=== PATIENT | female | born 1990 | race Caucasian/White ===

== ENCOUNTER 2018-08-29 12:31 | Day surgery (SDC) | payer BC ==
[~2018-08-29] VITALS: Ht 157.5 cm; Wt 77.6 kg
[~2018-08-29 12:31] MED LIST: NS 1,000 ML IV ONE; TOPA50TA8 PO
[2018-08-29] MEDS ORDERED: LIDOCAINE 2% INJ 100 MG/5 ML SDV (FOR ANES.) As Ordered ONE (12:56)
[2018-08-29] MEDS ORDERED: PROPOFOL 200 MG/20 ML VIAL As Ordered ONE (12:56)
--- NOTE | 2018-08-29 13:42 | ROOR ---
Patient Name: Manny Carrera Procedure Date: 08/29/2018 1:08 PM Date of : 1990 Age: 27 Room: [facility] Gender: Female Note Status: Finalized Procedure: Upper GI endoscopy Indications: Dyspepsia, Suspected gastro-esophageal reflux disease Providers: Julian Rachel MD Referring MD: RUBA Longoria Requesting Provider: Medicines: Monitored Anesthesia Care Complications: No immediate complications. Procedure: Pre-Anesthesia Assessment: - Prior to the procedure, a History and Physical was performed, and patient medications and allergies were reviewed. The patient is competent. The risks and benefits of the procedure and the sedation options and risks were discussed with the patient. All questions were answered and informed consent was obtained. Patient identification and proposed procedure were verified by the physician, the nurse and the anesthesiologist in the procedure room. Mental Status Examination: alert and oriented. Airway Examination: normal oropharyngeal airway and neck mobility. Respiratory Examination: clear to auscultation. CV Examination: normal. Prophylactic Antibiotics: The patient does not require prophylactic antibiotics. Prior Anticoagulants: The patient has taken no previous anticoagulant or antiplatelet agents. ASA Grade Assessment: II - A patient with mild systemic disease. After reviewing the risks and benefits, the patient was deemed in satisfactory condition to undergo the procedure. The anesthesia plan was to use monitored anesthesia care (MAC). Immediately prior to administration of medications, the patient was re-assessed for adequacy to receive sedatives. The heart rate, respiratory rate, oxygen saturations, blood pressure, adequacy of pulmonary ventilation, and response to care were monitored throughout the procedure. The physical status of the patient was re-assessed after the procedure. The Endoscope was introduced through the mouth, and advanced to the second part of duodenum. The upper GI endoscopy was accomplished without difficulty. The patient tolerated the procedure well. Findings: The Z-line was irregular and was found 36 cm from the incisors. LA Grade A (one or more mucosal breaks less than 5 mm, not extending between tops of 2 mucosal folds) esophagitis with no bleeding was found in the distal esophagus. Biopsies were taken with a cold forceps for histology. Verification of patient identification for the specimen was done by the physician and nurse using the patient's name, date and medical record number. Estimated blood loss was minimal. Scattered moderate inflammation characterized by erosions, erythema, friability and granularity was found in the gastric antrum. Biopsies were taken with a cold forceps for Helicobacter pylori testing. The duodenal bulb and second portion of the duodenum were normal. Biopsies for histology were taken with a cold forceps for evaluation of celiac disease. Impression: - Z-line irregular, 36 cm from the incisors. - LA Grade A reflux esophagitis. Biopsied. - Gastritis. Biopsied. - Normal duodenal bulb and second portion of the duodenum. Biopsied. Recommendation: - Patient has a contact number available for emergencies. The signs and symptoms of potential delayed complications were discussed with the patient. Return to normal activities tomorrow. Written discharge instructions were provided to the patient. - Resume regular diet. - Follow an antireflux regimen. - Await pathology results. - Telephone GI clinic for pathology results in 2 weeks. - Return to primary care physician. Julian Rachel MD Julian Rachel MD 08/29/2018 1:42:29 PM Electronically signed by Julian Rachel MD Number of Addenda: 0 Note Initiated On: 08/29/2018 1:08 PM Estimated Blood Loss: Estimated blood loss was minimal.
--- NOTE | 2018-08-29 13:48 | ROOR ---
Patient Name: Manny Carrera Procedure Date: 08/29/2018 1:09 PM Date of : 1990 Age: 27 Room: [facility] Gender: Female Note Status: Finalized Procedure: Colonoscopy Indications: Chronic diarrhea, Gastrointestinal occult blood loss Providers: Julian Rachel MD Referring MD: RUBA Longoria Requesting Provider: Medicines: Monitored Anesthesia Care Complications: No immediate complications. Procedure: Pre-Anesthesia Assessment: - Prior to the procedure, a History and Physical was performed, and patient medications and allergies were reviewed. The patient is competent. The risks and benefits of the procedure and the sedation options and risks were discussed with the patient. All questions were answered and informed consent was obtained. Patient identification and proposed procedure were verified by the physician, the nurse and the anesthesiologist in the procedure room. Mental Status Examination: alert and oriented. Airway Examination: normal oropharyngeal airway and neck mobility. Respiratory Examination: clear to auscultation. CV Examination: normal. Prophylactic Antibiotics: The patient does not require prophylactic antibiotics. Prior Anticoagulants: The patient has taken no previous anticoagulant or antiplatelet agents. ASA Grade Assessment: II - A patient with mild systemic disease. After reviewing the risks and benefits, the patient was deemed in satisfactory condition to undergo the procedure. The anesthesia plan was to use monitored anesthesia care (MAC). Immediately prior to administration of medications, the patient was re-assessed for adequacy to receive sedatives. The heart rate, respiratory rate, oxygen saturations, blood pressure, adequacy of pulmonary ventilation, and response to care were monitored throughout the procedure. The physical status of the patient was re-assessed after the procedure. The Colonoscope was introduced through the anus and advanced to the terminal ileum, with identification of the appendiceal orifice and IC valve. The colonoscopy was performed without difficulty. The patient tolerated the procedure well. The quality of the bowel preparation was good. The terminal ileum, ileocecal valve, appendiceal orifice, and rectum were photographed. Scope insertion time was 3 minutes. Scope withdrawal time was 6 minutes. The total duration of the procedure was 9 minutes. Findings: The perianal and digital rectal examinations were normal. The terminal ileum appeared normal. Normal mucosa was found in the entire colon. Biopsies for histology were taken with a cold forceps from the right colon, left colon and rectosigmoid colon for evaluation of microscopic colitis. Verification of patient identification for the specimen was done by the physician and nurse using the patient's name, date and medical record number. Estimated blood loss was minimal. Non-bleeding external and internal hemorrhoids were found during retroflexion. The hemorrhoids were medium-sized. Impression: - The examined portion of the ileum was normal. - Normal mucosa in the entire examined colon. Biopsied. - Non-bleeding external and internal hemorrhoids. Recommendation: - Patient has a contact number available for emergencies. The signs and symptoms of potential delayed complications were discussed with the patient. Return to normal activities tomorrow. Written discharge instructions were provided to the patient. - High fiber diet. - Continue present medications. - Await pathology results. - Repeat colonoscopy at age 52 for screening purposes. - Telephone GI clinic for pathology results @ [phone] after 1 week on Tuesday afternoon between 1:00 to 3:00 PM. - Return to primary care physician. Julian Rachel MD Julian Rachel MD 08/29/2018 1:48:09 PM Electronically signed by Julian Rachel MD Number of Addenda: 0 Note Initiated On: 08/29/2018 1:09 PM Estimated Blood Loss: Estimated blood loss was minimal.
[2018-08-29 14:00] VITALS: BP 142/97
== END 2018-08-29 14:12 | disposition home or self-care (01) ==
LOC: M OPP 12:31
PROVIDERS: ATTEND Internal Medicine Gastroenterology
DX: K64.8 Other hemorrhoids (principal); K52.9 Noninfective gastroenteritis and colitis, unspecified; R19.5 Other fecal abnormalities; R10.13 Epigastric pain; K22.8 Other specified diseases of esophagus; K21.0 Gastro-esophageal reflux disease with esophagitis; K29.70 Gastritis, unspecified, without bleeding; Z79.899 Other long term (current) drug therapy; Z88.8 Allergy status to other drugs, medicaments and biological substances

== ENCOUNTER → 2020-01-31 | Outpatient (CLI) | payer BC ==
[~2020-01-31] MED LIST changes: +ADV100INH INH; +DROS3TAB PO; +MONT4GRA4 PO; -NS 1,000 ML IV ONE; +OMEP40CA97 PO; +VENTAER INH
== END ==
LOC: M LABSMTC 12:07
PROVIDERS: ATTEND Anesthesiology
DX: Z01.812 Encounter for preprocedural laboratory examination (principal); Z20.828 Contact with and (suspected) exposure to other viral communicable diseases

== ENCOUNTER 2020-02-05 08:16 | Day surgery (SDC) | payer BC ==
[~2020-02-05] VITALS: Ht 154.9 cm; Wt 82.7 kg
[~2020-02-05 08:16] MED LIST changes: +LIDOCAINE 2% 100MG/5ML SDV (FOR ANES.) As Ordered ONE; +NS 1,000 ML IV ONE; +propofoL 200 MG/20 ML VIAL As Ordered ONE
--- NOTE | 2020-02-05 09:29 | ROOR ---
Patient Name: Manny Carrera Procedure Date: 02/05/2020 8:56 AM Date of : 1990 Age: 29 Room: [facility] Gender: Female Note Status: Finalized Procedure: Upper GI endoscopy Indications: Heartburn, Follow-up of Spivey's esophagus Providers: Julian Rachel MD Referring MD: Johanna Colunga NP Requesting Provider: Medicines: Monitored Anesthesia Care Complications: No immediate complications. Procedure: Pre-Anesthesia Assessment: - Prior to the procedure, a History and Physical was performed, and patient medications and allergies were reviewed. The patient is competent. The risks and benefits of the procedure and the sedation options and risks were discussed with the patient. All questions were answered and informed consent was obtained. Patient identification and proposed procedure were verified by the physician, the nurse and the anesthesiologist in the procedure room. Mental Status Examination: alert and oriented. Airway Examination: normal oropharyngeal airway and neck mobility. Respiratory Examination: clear to auscultation. CV Examination: normal. Prophylactic Antibiotics: The patient does not require prophylactic antibiotics. Prior Anticoagulants: The patient has taken no previous anticoagulant or antiplatelet agents. ASA Grade Assessment: II - A patient with mild systemic disease. After reviewing the risks and benefits, the patient was deemed in satisfactory condition to undergo the procedure. The anesthesia plan was to use monitored anesthesia care (MAC). Immediately prior to administration of medications, the patient was re-assessed for adequacy to receive sedatives. The heart rate, respiratory rate, oxygen saturations, blood pressure, adequacy of pulmonary ventilation, and response to care were monitored throughout the procedure. The physical status of the patient was re-assessed after the procedure. The Endoscope was introduced through the mouth, and advanced to the second part of duodenum. The upper GI endoscopy was accomplished without difficulty. The patient tolerated the procedure well. Findings: LA Grade A (one or more mucosal breaks less than 5 mm, not extending between tops of 2 mucosal folds) esophagitis with no bleeding was found in the distal esophagus. Biopsies were taken with a cold forceps for histology. Verification of patient identification for the specimen was done by the physician and nurse using the patient's name, date and medical record number. Estimated blood loss was minimal. Scattered mild inflammation characterized by erythema and granularity was found in the gastric antrum. Biopsies were taken with a cold forceps for Helicobacter pylori testing. The duodenal bulb and second portion of the duodenum were normal. Impression: - LA Grade A reflux esophagitis. Rule out Spivey's esophagus. Biopsied. - Gastritis. Biopsied. - Normal duodenal bulb and second portion of the duodenum. Recommendation: - Patient has a contact number available for emergencies. The signs and symptoms of potential delayed complications were discussed with the patient. Return to normal activities tomorrow. Written discharge instructions were provided to the patient. - High fiber diet. - Continue present medications. - Follow an antireflux regimen. - Await pathology results. - Repeat upper endoscopy in 3 years for surveillance based on pathology results. - Telephone GI clinic for pathology results in 2 weeks. - Return to primary care physician. Julian Rachel MD Julian Rachel MD 02/05/2020 9:28:40 AM Electronically signed by Julian Rachel MD Number of Addenda: 0 Note Initiated On: 02/05/2020 8:56 AM Estimated Blood Loss: Estimated blood loss was minimal.
[2020-02-05 09:40] VITALS: BP 163/89
== END 2020-02-05 09:42 | disposition home or self-care (01) ==
LOC: M OPP 08:16
PROVIDERS: ATTEND Internal Medicine Gastroenterology
DX: K21.00 Gastro-esophageal reflux disease with esophagitis, without bleeding (principal); K29.70 Gastritis, unspecified, without bleeding; K22.70 Barrett's esophagus without dysplasia; R12 Heartburn; J45.909 Unspecified asthma, uncomplicated; Z79.3 Long term (current) use of hormonal contraceptives; Z79.899 Other long term (current) drug therapy; Z88.8 Allergy status to other drugs, medicaments and biological substances

== ENCOUNTER → 2020-04-15 | Outpatient (REF) | payer BC ==
[~2020-04-15] MED LIST changes: -LIDOCAINE 2% 100MG/5ML SDV (FOR ANES.) As Ordered ONE; -NS 1,000 ML IV ONE; -propofoL 200 MG/20 ML VIAL As Ordered ONE
[2020-04-15 18:34] LABS: FREE T4 1.03 NG/DL (0.76-1.46); THYROID STIMULATING HORMONE 1.63 uIU/ML (0.358-3.740)
[2020-04-15 18:36] LABS: FOLLICLE STIMULATING HORMONE 4.6 mIU/mL
== END ==
LOC: M LAB REF 17:26
PROVIDERS: ATTEND Obstetrics & Gynecology
DX: N92.1 Excessive and frequent menstruation with irregular cycle (principal)

== ENCOUNTER → 2020-04-24 | Outpatient (CLI) | payer BC ==
--- NOTE | 2020-04-24 19:10 | REP ---
INDICATION: IRREGULAR CYCLES COMPARISON: None. TECHNIQUE: Transabdominal pelvic ultrasound followed by transvaginal examination for better evaluation of the endometrium and adnexa with color Doppler evaluation of the ovaries. FINDINGS: Bladder is unremarkable and measures 14.8 x 10.4 x 8.3 cm. Normal anteverted uterus measures 6.2 x 3.0 x 4.5 cm. The endometrial complex measures 4.0 mm thickness. No discrete uterine or endometrial abnormalities are appreciated. Bilateral ovaries are normal in appearance and vascularity without evidence for torsion. Right ovary measures 2.3 x 1.6 x 1.8 cm; R I = 0.41. Left ovary measures 2.3 x 1.4 x 1.5 cm; R I = 0.58. No pelvic fluid or adnexal mass lesion IMPRESSION: Normal pelvic ultrasound. <Electronically signed by Marco Jerome > 04/24/20 [id number]
== END ==
LOC: M RAD 10:34
PROVIDERS: ATTEND Obstetrics & Gynecology
DX: N92.1 Excessive and frequent menstruation with irregular cycle (principal)

== ENCOUNTER → 2020-10-02 | Outpatient (CLI) | payer BC ==
[~2020-10-02] MED LIST changes: +OMEP40CA4 PO; -OMEP40CA97 PO
[2020-10-02 17:53] LABS: BASO % 0.4 % (0.0-1.0); EOS % 0.4 % (0.0-3.0); HEMATOCRIT 42.4 % (36.0-47.0); LYMPH # 1.5 10^3/uL (1.5-5.0); LYMPH % 15.6 % (24.0-44.0); MEAN CORPUSCULAR HEMOGLOBIN 28.7 pg (27.0-33.0); MEAN CORPUSCULAR VOLUME 87.1 fl (80.0-96.0); MONO # 0.6 10^3/uL (0.0-0.8); MONO % 6.4 % (2.0-8.0); NEUTROPHILS # 7.2 10^3/uL (1.5-8.5); NEUTROPHILS % 76.6 % (36.0-66.0); PLATELET COUNT, AUTOMATED 299 10^3/uL (150-450); RED BLOOD COUNT 4.87 10^6/uL (4.00-5.40); WHITE BLOOD COUNT 9.4 10^3/uL (4.0-10.0)
[2020-10-02 18:17] LABS: HEMOGLOBIN A1c 4.9 %
[2020-10-02 18:45] LABS: HIV 1&2 SCREEN CENTAUR NEGATIVE (NEGATIVE)
[2020-10-02 19:24] LABS: GC DNA AMPLIFICATION NEGATIVE (NEGATIVE)
== END ==
LOC: M LAB 11:35 → M PLALAB 11:35
PROVIDERS: ATTEND Advanced Practice Midwife
DX: Z36.89 Encounter for other specified antenatal screening (principal); Z3A.08 8 weeks gestation of pregnancy

== ENCOUNTER → 2020-10-30 | Outpatient (REF) | payer BC ==
[~2020-10-30] MED LIST changes: +COLA100C5 PO; +IBUP80TA PO; +PERCOCET PO; +PRENTAB9 PO
== END ==
LOC: M SFHCWAGY 17:40
PROVIDERS: ATTEND Advanced Practice Midwife
DX: Z12.4 Encounter for screening for malignant neoplasm of cervix (principal)

== ENCOUNTER → 2020-11-12 | Outpatient (CLI) | payer BC ==
[~2020-11-12] MED LIST changes: -COLA100C5 PO; -IBUP80TA PO; -PERCOCET PO; -PRENTAB9 PO
== END ==
LOC: M PLALAB 15:15
PROVIDERS: ATTEND Advanced Practice Midwife
DX: Z34.81 Encounter for supervision of other normal pregnancy, first trimester (principal)

== ENCOUNTER → 2020-11-27 | Outpatient (REF) | payer BC | LOC: M SFHCWAGY 10:25 | PROVIDERS: ATTEND Advanced Practice Midwife | DX: O99.212 Obesity complicating pregnancy, second trimester (principal); E66.9 Obesity, unspecified ==

== ENCOUNTER → 2020-12-31 | Outpatient (CLI) | payer BC ==
--- NOTE | 2020-12-31 11:13 | REP ---
INDICATION: ANATOMY COMPARISON: None. TECHNIQUE: Transabdominal obstetrical ultrasound with color Doppler evaluation. FINDINGS: Examination demonstrates a single live intrauterine in variable presentation. motion is identified by technologist. Placenta is noted posterior and grade 0 without evidence for placenta previa or abruption. Amniotic fluid volume is normal. Cervix measures 4.3 cm in length and appears closed.. Selected gestational age: 21 weeks 4 days with HUOG 05/09/2021. Gestational age by current measurements 21 weeks 6 days with HUGO 05/07/2021. FHR equals 132 beats per minute. Estimated weight 454 grams (58thpercentile). Anatomical assessment demonstrates normal structures including cranium, choroid plexus, cavum, cerebellum/posterior fossa, orbits, nose/lips, lungs, diaphragm, stomach, cord insertion/three-vessel cord, kidneys/bladder, spine, and extremities. Limited evaluation of the facial profile and heart/ventricular outflow tracts. IMPRESSION: Single live intrauterine in variable presentation demonstrating appropriate estimated weight and growth. Anatomical limitations as noted above may warrant follow-up. <Electronically signed by Marco Jerome > 12/31/20 1942
== END ==
LOC: M WHC 10:24
PROVIDERS: ATTEND Advanced Practice Midwife
DX: O99.212 Obesity complicating pregnancy, second trimester (principal); Z3A.21 21 weeks gestation of pregnancy

== ENCOUNTER → 2021-01-07 | Outpatient (CLI) | payer BC | LOC: M LABSMTC 10:17 | PROVIDERS: ATTEND Pediatrics | DX: Z01.812 Encounter for preprocedural laboratory examination (principal); Z20.822 Contact with and (suspected) exposure to COVID-19 | CPT/HCPCS: C9803; U0003 ==

== ENCOUNTER → 2021-02-04 | Outpatient (CLI) | payer BC ==
[2021-02-04 15:42] LABS: HEMATOCRIT 35.4 % (36.0-47.0); HEMOGLOBIN 11.9 g/dl (12.0-15.5); MEAN CORPUSCULAR HEMOGLOBIN 28.9 pg (27.0-33.0); MEAN CORPUSCULAR HGB CONC 33.6 g/dl (32.0-36.5); MEAN CORPUSCULAR VOLUME 85.9 fl (80.0-96.0); PLATELET COUNT, AUTOMATED 236 10^3/uL (150-450); RED BLOOD COUNT 4.12 10^6/uL (4.00-5.40); WHITE BLOOD COUNT 10.2 10^3/uL (4.0-10.0)
[2021-02-04 17:03] LABS: GC DNA AMPLIFICATION NEGATIVE (NEGATIVE)
== END ==
LOC: M PLALAB 11:09
PROVIDERS: ATTEND Specialist
DX: Z34.82 Encounter for supervision of other normal pregnancy, second trimester (principal); Z36.89 Encounter for other specified antenatal screening

== ENCOUNTER → 2021-02-11 | Outpatient (CLI) | payer BC ==
--- NOTE | 2021-02-11 16:04 | REP ---
INDICATION: F/U ANATOMY COMPARISON: 12/31/2020 TECHNIQUE: Transabdominal obstetrical ultrasound with color Doppler evaluation. FINDINGS: Examination demonstrates a single live intrauterine in cephalic presentation. motion is identified by technologist. Placenta is noted posterior and grade 1 without evidence for placenta previa or abruption. Amniotic fluid volume is normal. Cervix measures 7.7 cm in length and appears closed.. Selected gestational age: 27 weeks 4 days with HUGO 05/09/2021. Gestational age by current measurements 27 weeks 6 days with HUGO 05/07/2021. FHR equals 123 beats per minute. Estimated weight 1122 grams (45thpercentile). Anatomical assessment demonstrates normal structures including facial profile, facial features. Continued limited evaluation of the heart and ventricular outflow tracts due to positioning. IMPRESSION: Single live intrauterine in cephalic presentation demonstrating appropriate interval growth. Continued limited evaluation of the heart/ventricular outflow tracts. <Electronically signed by Marco Jerome > 02/11/21 1600
== END ==
LOC: M WHC 15:01
PROVIDERS: ATTEND Specialist
DX: Z34.82 Encounter for supervision of other normal pregnancy, second trimester (principal); Z3A.27 27 weeks gestation of pregnancy

== ENCOUNTER → 2021-03-02 | Outpatient (CLI) | payer BC ==
--- NOTE | 2021-03-03 04:05 | REP ---
INDICATION: F/U ANATOMY COMPARISON: 02/11/2021 TECHNIQUE: Transabdominal obstetrical ultrasound with color Doppler evaluation. FINDINGS: Examination demonstrates a single live intrauterine in cephalic presentation. motion is identified by technologist. Placenta is noted posterior and grade 2 without evidence for placenta previa or abruption. Amniotic fluid volume is normal. Cervix measures 5.3 cm in length and appears closed.. Selected gestational age: 30 weeks 2 days with HUGO 05/09/2021. Gestational age by current measurements 30 weeks 0 days with HUGO 05/11/2021. FHR equals 121 beats per minute. Estimated weight 1484 grams (27thpercentile). TIM: 14.9 cm Umbilical artery SD ratio: 2.83 Anatomical assessment demonstrates normal structures including lungs, four-chamber heart/ventricular outflow tracts, and diaphragm. IMPRESSION: Single live intrauterine in cephalic presentation demonstrating appropriate estimated weight and growth. In conjunction with prior examination anatomical assessment is complete and normal. <Electronically signed by Marco Jerome > 03/03/21 [id number]
== END ==
LOC: M WHC 08:08
PROVIDERS: ATTEND Obstetrics & Gynecology
DX: Z34.03 Encounter for supervision of normal first pregnancy, third trimester (principal); Z3A.30 30 weeks gestation of pregnancy

== ENCOUNTER → 2021-03-09 | Outpatient (CLI) | payer BC | LOC: M LAB 08:21 | PROVIDERS: ATTEND Obstetrics & Gynecology | DX: Z34.03 Encounter for supervision of normal first pregnancy, third trimester (principal); Z36.89 Encounter for other specified antenatal screening; Z3A.28 28 weeks gestation of pregnancy ==

== ENCOUNTER 2021-03-16 15:12 | Outpatient (CLI) | payer BC ==
[~2021-03-16] VITALS: Ht 154.9 cm; Wt 93.7 kg
[2021-03-16 15:33] VITALS: BP 128/87
[2021-03-16] MEDS ORDERED: PRENTAB9 PO (15:38)
[2021-03-16] MEDS ORDERED: HOME MED LIST COMPLETE! XX SCH (15:40)
--- NOTE | 2021-03-16 16:06 | IPNPDOC ---
Text Note Date of Service The patient was seen on 03/16/21. NOTE Subjective: Manny is a 30-year-old female who is a at 32.2 weeks gestation with an HUGO of 05/09/21. She initiated care in her first trimester of with [facility]. She was just diagnosed with Gestational diabetes. She was sent over to the hospital from the office after having a non-reactive FHR tracing with variable decelerations. She reports active movement. She denies leaking of fluid, vaginal bleeding or contractions. Objective: VS: see below. FHR: 130, moderate variability, positive accelerations, no decelerations. [place]: Contractions-none General: Awake and alert. Does not appear to be in any distress. Respiratory: regular rate and rhythm. No use of accessory muscles. Abdomen: soft without tenderness with palpation Bedside US: cephalic presentation, fetus active, TIM: 13.17 Assessment: IUP at 32.2 weeks gestation, A1GDM, appropriate APFT Plan:Patient on the monitor for 40+ minutes with reactive tracing without decelerations. Modified BPP done showing appropriate fluid. Patient discharged t o home with precautions. Reviewed access to care, kick count, labor signs and danger signs to report. VS,Fishbone, I+O VS, Fishbone, I+O Vital Signs Date Time Temp Pulse Resp B/P (MAP) Pulse Ox O2 Delivery O2 Flow Rate FiO2 03/16/21 15:33 98.3 94 16 128/87 (101) 97 JOVANY PLAZA CNM Mar 16, 2021 16:06
== END 2021-03-16 16:40 | disposition home or self-care (01) ==
LOC: M LDO 15:12
PROVIDERS: ATTEND Advanced Practice Midwife
DX: O24.419 Gestational diabetes mellitus in pregnancy, unspecified control (principal); Z3A.32 32 weeks gestation of pregnancy
CPT/HCPCS: 59025; G0378; G0463

== ENCOUNTER 2021-03-31 14:23 | Outpatient (CLI) | payer BC ==
[~2021-03-31] VITALS: Ht 157.5 cm; Wt 93.5 kg
[~2021-03-31 14:23] MED LIST changes: +PRENTAB9 PO
[2021-03-31 14:42] VITALS: BP 125/87
[2021-03-31 15:56] VITALS: BP 139/76
[2021-03-31] MEDS ORDERED: BETAMETHASONE SOLUSPAN 6MG/ML 5ML VIAL (J0702 PER 3MG) IM ONE (16:15)
[2021-03-31 18:11] VITALS: BP 139/86
== END 2021-03-31 18:20 | disposition home or self-care (01) ==
LOC: M LDO 14:23
PROVIDERS: ATTEND Specialist
DX: O60.03 Preterm labor without delivery, third trimester (principal); O24.419 Gestational diabetes mellitus in pregnancy, unspecified control; Z3A.34 34 weeks gestation of pregnancy
CPT/HCPCS: 59025; 96372; G0378; G0463; J0702

== ENCOUNTER → 2021-04-08 | Outpatient (REF) | payer BC | LOC: M SFHCWAGY 10:22 | PROVIDERS: ATTEND Obstetrics & Gynecology | DX: O24.419 Gestational diabetes mellitus in pregnancy, unspecified control (principal) ==

== ENCOUNTER → 2021-04-10 | Outpatient (CLI) | payer BC | LOC: M WHC 15:45 | PROVIDERS: ATTEND Obstetrics & Gynecology | DX: O24.419 Gestational diabetes mellitus in pregnancy, unspecified control (principal) ==

== ENCOUNTER → 2021-06-29 | Outpatient (CLI) | payer BC ==
[~2021-06-29] MED LIST changes: +COLA100C5 PO; +IBUP80TA PO; +PERCOCET PO
== END ==
LOC: M CARPUL 10:55
PROVIDERS: ATTEND Physician Assistant
DX: J45.20 Mild intermittent asthma, uncomplicated (principal)

== ENCOUNTER 2022-09-20 07:49 | Emergency (ER) | payer BC, MEDICAID, OTHER, SELFPAY ==
[~2022-09-20] VITALS: Ht 154.9 cm; Wt 86.9 kg
[2022-09-20 08:53] LABS: BASO % 0.3 % (0.0-1.0); EOS % 0.1 % (0.0-3.0); HEMATOCRIT 41.1 % (36.0-47.0); HEMOGLOBIN 13.8 g/dl (12.0-15.5); LYMPH # 0.7 10^3/uL (1.5-5.0); MEAN CORPUSCULAR HEMOGLOBIN 28.7 pg (27.0-33.0); MEAN CORPUSCULAR HGB CONC 33.6 g/dl (32.0-36.5); MEAN CORPUSCULAR VOLUME 85.4 fl (80.0-96.0); MONO # 0.7 10^3/uL (0.0-0.8); MONO % 6.4 % (2.0-8.0); NEUTROPHILS # 9.9 10^3/uL (1.5-8.5); NEUTROPHILS % 86.6 % (36.0-66.0); PLATELET COUNT, AUTOMATED 222 10^3/uL (150-450); RED BLOOD COUNT 4.81 10^6/uL (4.00-5.40); WHITE BLOOD COUNT 11.5 10^3/uL (4.0-10.0)
[2022-09-20 09:11] LABS: LIPASE 24 U/L (12-53)
[2022-09-20 09:13] LABS: ALBUMIN 3.5 G/DL (3.2-5.2); ALKALINE PHOSPHATASE 78 U/L (46-116); ALT/SGPT 10 U/L (7.0-40); AST/SGOT 9 U/L (<34); BILIRUBIN,DIRECT 0.2 MG/DL (<0.4); BILIRUBIN,TOTAL 0.7 MG/DL (0.3-1.2); BLOOD UREA NITROGEN 8 MG/DL (9-23); CALCIUM LEVEL 8.6 MG/DL (8.5-10.1); CARBON DIOXIDE LEVEL 22 MMOL/L (20-31); CHLORIDE LEVEL 103 MMOL/L (98-107); CREATININE FOR GFR 0.54 MG/DL (0.55-1.30); GLOMERULAR FILTRATION RATE > 60.0 (>60); GLUCOSE, FASTING 93 MG/DL (60-100); POTASSIUM SERUM 3.1 MMOL/L (3.5-5.1); SODIUM LEVEL 136 MMOL/L (136-145)
[2022-09-20 09:18] LABS: HCG, SERUM QUALITATIVE NEGATIVE (NEGATIVE)
[2022-09-20] MEDS ORDERED: ONDANSETRON 4MG 2ML VIAL IV ONE (10:55)
[2022-09-20] MEDS ORDERED: KETOROLAC 30 MG/ML 1ML VIAL IV ONE (10:55)
[2022-09-20] MEDS ORDERED: NS 1,000 ML IV ONE (10:55)
[2022-09-20] MEDS ORDERED: ISOVUE-370 76% 100ML VIAL As Ordered ONE (11:24)
[2022-09-20] MEDS ORDERED: SERT50TA29 (11:25)
[2022-09-20] MEDS ORDERED: PROP20TA72 (11:25)
[2022-09-20] MEDS ORDERED: OMEP40CA5 (11:25)
[2022-09-20] MEDS ORDERED: PRED20TA PO (13:07)
[2022-09-20 13:14] VITALS: BP 125/88; TEMP 97.9; O2SAT 100
[2022-09-21] MEDS ORDERED: AZIT500T5 PO (18:47)
== END 2022-09-20 13:42 | disposition home or self-care (01) ==
LOC: M ED 07:49
DX: K63.89 Other specified diseases of intestine (principal); K21.9 Gastro-esophageal reflux disease without esophagitis; Z79.899 Other long term (current) drug therapy; Z88.8 Allergy status to other drugs, medicaments and biological substances
CPT/HCPCS: 74177; 80048; 80076; 83605; 83690; 84703; 85025; 87507; 96361; 96374; 96375; 99284; J1885; J2405; Q9967

== ENCOUNTER 2022-09-21 15:12 | Emergency (ER) | payer OTHER ==
[~2022-09-21] VITALS: Ht 154.9 cm; Wt 86.4 kg
[~2022-09-21 15:12] MED LIST changes: +OMEP40CA5; +PRED20TA PO; +PROP20TA72; +SERT50TA29
[2022-09-21] MEDS ORDERED: NS 1,000 ML IV ONE (17:15)
[2022-09-21 17:26] LABS: HEMOGLOBIN 14.1 g/dl (12.0-15.5); MEAN CORPUSCULAR HEMOGLOBIN 28.5 pg (27.0-33.0); MEAN CORPUSCULAR HGB CONC 33.6 g/dl (32.0-36.5); MEAN CORPUSCULAR VOLUME 84.8 fl (80.0-96.0); PLATELET COUNT, AUTOMATED 294 10^3/uL (150-450); RED BLOOD COUNT 4.95 10^6/uL (4.00-5.40); WHITE BLOOD COUNT 9.5 10^3/uL (4.0-10.0)
[2022-09-21 17:52] LABS: INR 1.03; PROTHROMBIN TIME 13.7 SECONDS (12.5-14.5)
[2022-09-21 18:05] LABS: LIPASE 30 U/L (12-53)
[2022-09-21 18:09] LABS: ALBUMIN 3.7 G/DL (3.2-5.2); ALKALINE PHOSPHATASE 74 U/L (46-116); ALT/SGPT < 9 U/L (7.0-40); AST/SGOT 10 U/L (<34); BILIRUBIN,DIRECT < 0.1 MG/DL (<0.4); BILIRUBIN,TOTAL 0.3 MG/DL (0.3-1.2); TOTAL PROTEIN 7.1 G/DL (5.7-8.2)
[2022-09-21] MEDS ORDERED: AZITHROMYCIN 250MG TABLET PO ONE (18:45)
[2022-09-21] MEDS ORDERED: AZIT500T5 PO (18:47)
[2022-09-21 18:54] VITALS: BP 115/64; TEMP 97.6; O2SAT 97
== END 2022-09-21 19:20 | disposition home or self-care (01) ==
LOC: M ED 15:12
DX: A04.5 Campylobacter enteritis (principal); K21.9 Gastro-esophageal reflux disease without esophagitis; Z88.8 Allergy status to other drugs, medicaments and biological substances

== ENCOUNTER → 2023-04-20 | Outpatient (REF) | payer OTHER, MEDICAID ==
[~2023-04-20] MED LIST changes: +AZIT500T5 PO; -MONT4GRA4 PO; +MONT4GRA7 PO
== END ==
LOC: M SFHCWAGY 17:12
PROVIDERS: ATTEND Nurse Practitioner Family
DX: Z11.3 Encounter for screening for infections with a predominantly sexual mode of transmission (principal); Z12.4 Encounter for screening for malignant neoplasm of cervix; Z11.51 Encounter for screening for human papillomavirus (HPV)

== ENCOUNTER → 2023-04-22 | Outpatient (CLI) | payer OTHER, MEDICAID ==
[2023-04-22 11:00] LABS: URINE PREG TEST NEGATIVE (NEGATIVE)
[2023-04-22 12:00] LABS: HIV 1&2 SCREEN NEGATIVE (NEGATIVE)
[2023-04-22 12:07] LABS: HEPATITIS B CORE ANTIBODY IGM NEGATIVE (NEGATIVE); HEPATITIS C VIRUS ABY INDEX < 0.02 INDEX (<0.8)
== END ==
LOC: M PLALAB 08:07
PROVIDERS: ATTEND Nurse Practitioner Family
DX: Z11.3 Encounter for screening for infections with a predominantly sexual mode of transmission (principal)

== ENCOUNTER → 2023-04-22 | Outpatient (CLI) | payer OTHER | LOC: M RAD 08:36 | PROVIDERS: ATTEND Physician Assistant | DX: M25.562 Pain in left knee (principal) ==

== ENCOUNTER → 2023-04-22 | Outpatient (CLI) | payer OTHER, MEDICAID ==
[2023-04-22 11:05] LABS: BASO % 0.4 % (0.0-1.0); EOS # 0.1 10^3/uL (0.0-0.5); EOS % 0.6 % (0.0-3.0); HEMATOCRIT 41.8 % (36.0-47.0); HEMOGLOBIN 13.7 g/dl (12.0-15.5); MEAN CORPUSCULAR HEMOGLOBIN 28.3 pg (27.0-33.0); MEAN CORPUSCULAR HGB CONC 32.8 g/dl (32.0-36.5); MEAN CORPUSCULAR VOLUME 86.4 fl (80.0-96.0); MONO # 0.6 10^3/uL (0.0-0.8); NEUTROPHILS # 6.5 10^3/uL (1.5-8.5); NEUTROPHILS % 79.4 % (36.0-66.0); PLATELET COUNT, AUTOMATED 310 10^3/uL (150-450); RED BLOOD COUNT 4.84 10^6/uL (4.00-5.40); WHITE BLOOD COUNT 8.2 10^3/uL (4.0-10.0)
[2023-04-22 11:34] LABS: ALBUMIN 3.8 G/DL (3.2-5.2); ALKALINE PHOSPHATASE 72 U/L (46-116); ALT/SGPT 12 U/L (7.0-40); AST/SGOT < 8 U/L (<34); BILIRUBIN,TOTAL 0.4 MG/DL (0.3-1.2); BLOOD UREA NITROGEN 12 MG/DL (9-23); CALCIUM LEVEL 8.8 MG/DL (8.5-10.1); CARBON DIOXIDE LEVEL 28 MMOL/L (20-31); CHLORIDE LEVEL 106 MMOL/L (98-107); CHOLESTEROL LEVEL 188 MG/DL (<200); CHOLESTEROL RISK RATIO 3.87 (<5); CREATININE FOR GFR 0.55 MG/DL (0.55-1.30); GLOMERULAR FILTRATION RATE > 60.0 (>60); GLUCOSE, FASTING 74 MG/DL (60-100); HDL CHOLESTEROL 48.5 MG/DL (>40); LDL CHOLESTEROL 118.9 MG/DL (<100); NON-HDL-C 139.5 MG/DL; POTASSIUM SERUM 3.6 MMOL/L (3.5-5.1); SODIUM LEVEL 134 MMOL/L (136-145); TOTAL PROTEIN 7.3 G/DL (5.7-8.2); TRIGLYCERIDES LEVEL 103 MG/DL (<150)
[2023-04-22 11:35] LABS: FERRITIN 30.8 NG/ML (7.3-270.7); FREE T4 1.16 NG/DL (0.89-1.76); THYROID STIMULATING HORMONE 0.998 uIU/ML (0.55-4.78)
[2023-04-22 11:36] LABS: VITAMIN B12 LEVEL 497 PG/ML (211-911)
== END ==
LOC: M PLALAB 08:03
PROVIDERS: ATTEND Physician Assistant
DX: R55 Syncope and collapse (principal); R53.83 Other fatigue; E66.09 Other obesity due to excess calories

== ENCOUNTER 2024-12-25 11:44 | Emergency (ER) | payer MEDICAID, OTHER ==
[~2024-12-25] VITALS: Ht 152.4 cm; Wt 67.2 kg
[~2024-12-25 11:44] MED LIST changes: -ADV100INH INH; +ADVA1AER8 INH; -SERT50TA29; +SERT50TA29 PO
[2024-12-25] MEDS ORDERED: DEBL1TAB PO (11:59)
[2024-12-25] MEDS ORDERED: ALBU8.5H INH (11:59)
[2024-12-25] MEDS ORDERED: HYDR50CA2 PO (11:59)
[2024-12-25 12:46] LABS: BASO # 0.0 10^3/uL (0.0-0.2); BASO % 0.2 % (0.0-1.0); EOS # 0.0 10^3/uL (0.0-0.5); EOS % 0.1 % (0.0-3.0); LYMPH # 1.0 10^3/uL (1.5-5.0); LYMPH % 11.7 % (24.0-44.0); MONO # 0.4 10^3/uL (0.0-0.8); MONO % 5.0 % (2.0-8.0); NEUTROPHILS # 7.1 10^3/uL (1.5-8.5); NEUTROPHILS % 82.7 % (36.0-66.0); PLATELET COUNT, AUTOMATED 314 10^3/uL (150-450)
[2024-12-25 13:07] LABS: CK-MB VALUE MASS < 1.0 NG/ML (<3.6); CPK CREATINE PHOSPHOKINASE 31 U/L (34-145)
[2024-12-25 13:08] LABS: CALCIUM LEVEL 9.0 MG/DL (8.5-10.1); CARBON DIOXIDE LEVEL 24 MMOL/L (20-31); CHLORIDE LEVEL 106 MMOL/L (98-107); CREATININE FOR GFR 0.58 MG/DL (0.55-1.30); GLOMERULAR FILTRATION RATE > 90.0 (>60); POTASSIUM SERUM 3.3 MMOL/L (3.5-5.1); SODIUM LEVEL 138 MMOL/L (136-145)
[2024-12-25 13:37] LABS: HCG, SERUM QUALITATIVE NEGATIVE (NEGATIVE)
[2024-12-25 14:17] LABS: MAGNESIUM LEVEL 2.0 MG/DL (1.8-2.4)
[2024-12-25] MEDS ORDERED: HOME MED LIST COMPLETE! XX SCH (14:20)
[2024-12-25 14:38] LABS: AMPHETAMINES LEVEL URINE NEGATIVE (NEGATIVE); BARBITURATES URINE NEGATIVE (NEGATIVE); COCAINE METABOLITE URINE NEGATIVE (NEGATIVE); METHADONE URINE NEGATIVE (NEGATIVE)
[2024-12-25 14:39] LABS: BENZODIAZEPINES URINE NEGATIVE (NEGATIVE); OPIATES URINE NEGATIVE (NEGATIVE); PHENCYCLIDINE URINE NEGATIVE (NEGATIVE)
[2024-12-25 14:43] LABS: CANNABINOIDS URINE POSITIVE (NEGATIVE)
[2024-12-25 15:30] VITALS: BP 127/78; O2SAT 98
[2024-12-25 15:34] VITALS: TEMP 98.7
[2024-12-25] MEDS: POTASSIUM CHLORIDE 10MEQ SR TABLET PO ONE (15:38)
[2024-12-25] MEDS ORDERED: HOLTER MONITOR XX (15:39)
== END 2024-12-25 15:46 | disposition home or self-care (01) ==
LOC: M ED 11:44
DX: R55 Syncope and collapse (principal); Z79.899 Other long term (current) drug therapy; Z88.8 Allergy status to other drugs, medicaments and biological substances

== ENCOUNTER → 2024-12-26 | Outpatient (CLI) | payer OTHER ==
[~2024-12-26] MED LIST changes: +ALBU8.5H INH; +DEBL1TAB PO; +HOLTER MONITOR XX; +HYDR50CA2 PO
== END ==
LOC: M EKG 14:21
PROVIDERS: ATTEND Physician Assistant Medical
DX: R00.2 Palpitations (principal); Z53.9 Procedure and treatment not carried out, unspecified reason